=== PATIENT | female | born 1970 | race American Indian/Alaskan Native ===

== ENCOUNTER 2017-12-15 18:23 | Emergency (ER) | payer MEDICAID ==
--- NOTE | 2017-12-15 19:59 | Emergency Department Report ---
ED Psych HPI - General Chief Complaint: Psych Stated Complaint: MENTAL HEALTH EVALUATION Time Seen by Provider: 12/15/17 19:51 Source: patient Mode of arrival: Ambulatory - History of Present Illness Initial Comments: 47-year-old female brought in by professor of social work increasing combative behavior at the [facility] becoming combative foul language, which aggressive towards staff and residents patient arrives awake and alert but refusing to answer further questions uncooperative with exam and history.awake and alert, nad, vss, no airway problems, no stiff neck no obtundation, here for med clearance and mental health pedro CARIAS Complaint: other (combative behavir, personality d/o, thought and mood d/o) -: unknown Associated Psychiatric Symptoms: racing thoughts, auditory hallucinations Quality: intermittent Context: not taking psychiatric, other (stopped taking her meds 2 months ago) - Related Data Home Medications Medication Instructions Recorded Confirmed Last Taken Unobtainable 12/16/17 12/16/17 Unknown Allergies Allergy/AdvReac Type Severity Reaction Status Date / Time haloperidol [From Haldol] Allergy Unknown Verified 12/15/17 19:07 ED Review of Systems ROS: Stated complaint: MENTAL HEALTH EVALUATION Other details as noted in HPI Comment: Unobtainable due to pts medical conditions ED Past Medical Hx - Medications Home Medications: Home Medications Medication Instructions Recorded Confirmed Last Taken Type Unobtainable 12/16/17 12/16/17 Unknown History ED Physical Exam - General Limitations: Altered Mental Status, Other (awake and alert, no airway problems, good sat, no stridor no drooling) General appearance: alert, in no apparent distress - Head Head exam: Present: atraumatic, normocephalic - Eye Eye exam: Present: PERRL, EOMI - ENT ENT exam: Present: normal exam, normal orophraynx - Neck Neck exam: Present: normal inspection. Absent: tenderness, meningismus - Respiratory Respiratory exam: Present: normal lung sounds bilaterally. Absent: respiratory distress, wheezes, rales, rhonchi, stridor, chest wall tenderness, accessory muscle use, decreased breath sounds, prolonged expiratory - Cardiovascular Cardiovascular Exam: Present: regular rate. Absent: rubs, gallop - GI/Abdominal GI/Abdominal exam: Present: soft. Absent: tenderness, guarding, rebound, rigid , organomegaly, mass, pulsatile mass - Extremities Exam Extremities exam: Present: normal inspection, normal capillary refill. Absent: pedal edema, joint swelling, calf tenderness - Back Exam Back exam: Present: normal inspection. Absent: CVA tenderness (L), muscle spasm , paraspinal tenderness, vertebral tenderness - Neurological Exam Neurological exam: Present: alert, normal gait. Absent: motor sensory deficit - Psychiatric Psychiatric exam: Present: agitated, anxious, flat affect - Skin Skin exam: Absent: cyanosis, diaphoretic, erythema, urticaria, vesicles, petechiae, pallor, ecchymosis ED Course Vital Signs 12/15/17 19:07 Temperature 99.2 F Pulse Rate 91 H Respiratory 18 Rate Blood Pressure 100/53 [Left] O2 Sat by Pulse 100 Oximetry - Reevaluation(s) Reevaluation #1: 12/15/17 20:18 Patient placed on 1013 awaiting mental health eval. Clearance laboratory studies were ordered and are pending. ED Medical Decision Making - Lab Data Result diagrams: 12/15/17 19:46 12/15/17 19:46 - Radiology Data Radiology results: pending - Medical Decision Making Patient was placed on 1013 for danger to self and others he is uncooperative with further questioning but is unable to function at home where she was combative and a danger to staff and residents. Patient has a microcytic anemia no laboratory studies are available. She denies vaginal bleeding no black or bloody stools appreciated. She also does have hematuria with Estrace and the urine. She is not urinalysis for drugs of abuse was unremarkable and her salicylate Tylenol and alcohol were unremarkable. Given the anemia with hematuria CT abdomen and pelvis was ordered patient was placed on 1013. CT results are pending for medical clearance.ct results show nonobstructing kidney stones, abx for poss uti , med cleared for psych admit. Critical care attestation.: If time is entered above; I have spent that time in minutes in the direct care of this critically ill patient, excluding procedure time. ED Disposition Clinical Impression: Psychosis, UTI (urinary tract infection) Disposition: DC/TX-65 PSY HOSP/PSY UNIT Is pt being admited?: No Condition: Stable Referrals: CLEMENT HOLDER MD [Primary Care Provider] - 3-5 Days Time of Disposition: 01:08
[2017-12-15 20:06] LABS: Basophils % (Auto) 0.4 % (0.0-1.8); Eosinophils % (Auto) 0.2 % (0.0-4.3); Hematocrit 24.9 % (30.3-42.9); Hemoglobin 7.7 gm/dl (10.1-14.3); Lymphocytes # (Auto) 2.6 K/mm3 (1.2-5.4); Lymphocytes % (Auto) 34.5 % (13.4-35.0); Mean Corpuscular HGB Conc 31 % (30-34); Mean Corpuscular Volume 77 fl (79-97); Monocytes # (Auto) 0.7 K/mm3 (0.0-0.8); Monocytes % (Auto) 9.1 % (0.0-7.3); Platelet Count 157 K/mm3 (140-440); Red Blood Count 3.24 M/mm3 (3.65-5.03)
[2017-12-15 20:13] LABS: Bacteria,Urine 1+ /HPF (Negative); Bilirubin,Urine NEG (Negative); Blood,Urine MOD (Negative); Color,Urine Yellow (Yellow); Mucus,Urine FEW /HPF; Nitrite,Urine NEG (Negative); Protein,Urine <15 mg/dL mg/dL (Negative); Urobilinogen,Urine < 2.0 mg/dL (<2.0)
[2017-12-15 20:18] LABS: Mean Corpuscular Hemoglobin 24 pg (28-32); Red Cell Distribution Width 21.8 % (13.2-15.2)
[2017-12-15 20:25] LABS: BUN/Creatinine Ratio 12; Blood Urea Nitrogen 7 mg/dL (7-17); Hemolysis Index 0
[2017-12-15 20:40] LABS: Amphetamine Screen,Urine PRESUMPTIVE NEGATIVE; Benzodiazepines Screen,Urine PRESUMPTIVE NEGATIVE; Cannabinoid Screen,Urine PRESUMPTIVE NEGATIVE; Cocaine Screen,Urine PRESUMPTIVE NEGATIVE; Methadone Screen,Urine PRESUMPTIVE NEGATIVE; Opiate Screen,Urine PRESUMPTIVE NEGATIVE
[2017-12-16] MEDS ORDERED: XYLOCAINE 1% MPF 5 mL INFILTRATI ONE (01:15)
[2017-12-16] MEDS ORDERED: ROCEPHIN IM ONE (01:15)
[2017-12-16] MEDS ORDERED: GEODON IM ONE (01:42)
--- NOTE | 2017-12-16 07:43 | Cat Scan Report ---
FINAL REPORT EXAM: CT ABDOMEN PELVIS WO CON HISTORY: hematuria TECHNIQUE: Routine axial imaging was obtained of the abdomen and pelvis without oral or IV contrast. Sagittal and coronal reconstructions were reviewed. FINDINGS: The lung bases do not show infiltrates or effusions. The liver, gallbladder, pancreas, spleen, and adrenal glands appear normal. The right kidney reveals a punctate nonobstructing calcification in the lower pole. There is no evidence of right-sided hydronephrosis. The left kidney reveals multiple cortical cysts measuring up to 5.7 cm in diameter. There is no evidence of hydronephrosis otherwise. The bowel loops are normal in caliber and course. The appendix is not enlarged. In the pelvis the uterus is diffusely enlarged. The bladder appears normal. There are multiple phleboliths along the floor pelvis. There is no evidence of free fluid or adenopathy. The skeletal structures reveal mild arthritic changes lumbar spine. IMPRESSION: Nonobstructing punctate calcification in the lower pole of the right kidney. No evidence of hydronephrosis Multiple cortical cysts in the left kidney measuring 5.7 cm in diameter. No acute process in the abdomen and pelvis. Enlarged uterus. Arthritic changes in the lumbar spine
--- NOTE | 2017-12-16 14:14 | Consultation ---
History of Present Illness - Reason for Consult Consult date: 12/16/17 Reason for consult: Mental Health Evaluation Requesting physician: SARAH SALMERON - Chief Complaint Chief complaint: "What" - History of Present Psychiatric Illness This is a 47-year-old AA female brought in by manager social media with increasing combative behavior at her correction. Today the patient is hyper verbal and tangent during the assessment. She had to be redirected several times to keep her on topic. Her answers to questions were not logical. She did deny Si/HI's. The patient is a poor historian at this time. Medications and Allergies Allergies Allergy/AdvReac Type Severity Reaction Status Date / Time haloperidol [From Haldol] Allergy Unknown Verified 12/15/17 19:07 Home Medications Medication Instructions Recorded Confirmed Last Taken Type Unobtainable 12/16/17 12/16/17 Unknown History Past psychiatric history - Past Medical History Past Medical History: other (Unable to obtain) Past Surgical History: Other (Unable to obtain) - past Psychiatric treatment and history psychiatric treatment history: The patient stated that she takes Zyprexa and Depakote. Unable to obtain a fam psy hx. - Social History Social history: other (Reside at a correction) Mental Status Exam - Vital signs Last Vital Signs Temp 99.2 F 12/15/17 19:07 Pulse 91 H 12/15/17 19:07 Resp 18 12/15/17 19:07 BP 100/53 12/15/17 19:07 Pulse Ox 100 12/15/17 19:07 - Exam Narrative exam: MSE: Appearance: calm Behavior: regular eye contact Speech: hyper verbal Mood: "okay" Affect: labile Thought Process: tangential Thought Content: denies SI/HI's and AVH's, disorganized Motor Activity: sitting up in the bed Cognition: A/O x 3 Insight: poor Judgment: poor Results Result Diagrams: 12/15/17 19:46 12/15/17 19:46 Abnormal lab results 12/15/17 12/15/17 12/15/17 Range/Units 19:46 19:46 19:46 RBC 3.24 L (3.65-5.03) M/mm3 Hgb 7.7 L (10.1-14.3) gm/dl Hct 24.9 L (30.3-42.9) % MCV 77 L (79-97) fl MCH 24 L (28-32) pg RDW 21.8 H (13.2-15.2) % [place] % (Auto) 9.1 H (0.0-7.3) % Sodium 136 L (137-145) mmol/L Potassium 3.3 L (3.6-5.0) mmol/L Carbon Dioxide 18 L (22-30) mmol/L Creatinine 0.6 L (0.7-1.2) mg/dL Salicylates < 0.3 L (2.8-20.0) mg/dL All other labs normal. Assessment and Plan Assessment and plan: Impression: Unspecified Psychosis. Today the patient is hyper verbal and tangent during the assessment. HgB 7.7. DDx: Bipolar Do with psychosis, R/O Schizophrenia , R/O Schizoaffective DO Recommendation/Plan: Continue 1013 with placement to inpatient psy services once cleared medically. Start Zyprexa 5 mg PO HS for mood/psychosis and Depakote 500 mg PO BID for mood.
[2017-12-16 15:13] LABS: Alanine Aminotransferase 6 units/L (7-56); Lipase 12 units/L (13-60)
[2017-12-17 08:36] VITALS: BP 125/65
[2017-12-17] MEDS ORDERED: ATIVAN IM ONE (13:09)
== END 2017-12-17 13:28 ==
LOC: ED 18:23 → EEVIPCON 18:23 → ED 12-17 13:28
DX: F29 Unspecified psychosis not due to a substance or known physiological condition (principal); N39.0 Urinary tract infection, site not specified
CPT/HCPCS: 36415; 80048; 80164; 80307; 81001; 82150; 83690; 84075; 84450; 84460; 84703; 85025; 96372; 99285; G0480; J0696; J2060; J3486; 80320

== ENCOUNTER 2018-06-15 01:46 | Emergency (ER) | payer MEDICAID ==
[2018-06-15 02:08] VITALS: BP 109/70
[2018-06-15 03:01] LABS: Basophils # (Auto) 0.1 K/mm3 (0.0-0.1); Basophils % (Auto) 1.3 % (0.0-1.8); Eosinophils % (Auto) 0.3 % (0.0-4.3); Hematocrit 23.5 % (30.3-42.9); Hemoglobin 7.3 gm/dl (10.1-14.3); Lymphocytes # (Auto) 1.6 K/mm3 (1.2-5.4); Lymphocytes % (Auto) 32.3 % (13.4-35.0); Mean Corpuscular HGB Conc 31 % (30-34); Mean Corpuscular Hemoglobin 25 pg (28-32); Mean Corpuscular Volume 82 fl (79-97); Monocytes # (Auto) 0.4 K/mm3 (0.0-0.8); Monocytes % (Auto) 7.4 % (0.0-7.3); Platelet Count 167 K/mm3 (140-440); Red Blood Count 2.87 M/mm3 (3.65-5.03); Red Cell Distribution Width 21.6 % (13.2-15.2)
[2018-06-15 03:14] LABS: BUN/Creatinine Ratio 10; Blood Urea Nitrogen 6 mg/dL (7-17); Calcium 8.8 mg/dL (8.4-10.2); Hemolysis Index 0
--- NOTE | 2018-06-15 03:44 | Emergency Department Report ---
ED Psych HPI - General Chief Complaint: Psych Stated Complaint: MH EVAL Time Seen by Provider: 06/15/18 03:43 Source: patient, police Mode of arrival: Ambulatory - History of Present Illness Initial Comments: Pt hasn't had her meds in 2 weeks. She comes to the ER for refill of her home medication. Denies SI, HI. - Related Data Previous Rx's Medication Instructions Recorded Last Taken Type Divalproex Sodium [Depakote] 500 mg PO BID #30 tablet. 06/15/18 Unknown Rx Allergies Allergy/AdvReac Type Severity Reaction Status Date / Time haloperidol [From Haldol] Allergy Unknown Verified 12/15/17 19:07 ED Review of Systems ROS: Stated complaint: MH EVAL Other details as noted in HPI Comment: All other systems reviewed and negative Psychiatric: auditory hallucinations. denies: homicidal thoughts, suicidal thoughts ED Past Medical Hx - Past Medical History Previous Medical History?: Yes - Surgical History Past Surgical History?: No - Social History Smoking Status: Never Smoker Substance Use Type: Alcohol - Medications Home Medications: Home Medications Medication Instructions Recorded Confirmed Last Taken Type Divalproex Sodium [Depakote] 500 mg PO BID #30 tablet. 06/15/18 Unknown Rx ED Physical Exam - General Limitations: No Limitations General appearance: alert, in no apparent distress, anxious, other (disheveled) - Head Head exam: Present: atraumatic, normocephalic - Eye Eye exam: Present: normal appearance - ENT ENT exam: Present: mucous membranes moist - Neck Neck exam: Present: normal inspection - Respiratory Respiratory exam: Present: normal lung sounds bilaterally. Absent: respiratory distress - Cardiovascular Cardiovascular Exam: Present: regular rate, normal rhythm. Absent: systolic murmur, diastolic murmur, rubs, gallop - GI/Abdominal GI/Abdominal exam: Present: soft, normal bowel sounds. Absent: distended, tenderness, guarding, rebound - Extremities Exam Extremities exam: Present: normal inspection - Back Exam Back exam: Present: normal inspection - Neurological Exam Neurological exam: Present: alert, oriented X3 - Psychiatric Psychiatric exam: Present: normal affect, anxious (odd behaviour) - Skin Skin exam: Present: warm, dry, intact, normal color. Absent: rash ED Course Vital Signs 06/15/18 02:02 Temperature 98.5 F Pulse Rate 85 Respiratory 16 Rate Blood Pressure 109/70 O2 Sat by Pulse 100 Oximetry ED Medical Decision Making - Lab Data Result diagrams: 06/15/18 02:36 06/15/18 02:36 - Medical Decision Making 47 yo female with pmhx of unknown psych diagnosis that presents for med refill. VSS. Pt is mildly dishelved. She is odd with borderline pressure speech. Patient is alert and oriented 3. She does not want to speak with the psychiatrist. She is just requesting for a refill of her Depakote medicine. Lab work shows stable chronic anemia. Glucophage in the past. Given her a refill of 20 days worth of Depakote. She has also been referred [facility] for further refills of her psych medication. Patient is cleared for discharged. - Differential Diagnosis psychosis, schizophrenia, manic disoder, mood disorder nos, intoxication Critical care attestation.: If time is entered above; I have spent that time in minutes in the direct care of this critically ill patient, excluding procedure time. ED Disposition Clinical Impression: Anemia, Mood disorder, Medication refill Disposition: DC-01 TO HOME OR SELFCARE Is pt being admited?: No Does the pt Need Aspirin: No Condition: Stable Additional Instructions: Please follow up with [facility] for further refills of your psychiatric medication. Prescriptions: Divalproex Sodium [Depakote] 500 mg PO BID #30 tablet. Referrals: PRIMARY CARE, [Primary Care Provider] - 3-5 Days [facility] [Outside] - 3-5 Days
== END 2018-06-15 04:00 | disposition home or self-care (01) ==
LOC: ED 01:46
DX: Z76.0 Encounter for issue of repeat prescription (principal); D64.9 Anemia, unspecified; F39 Unspecified mood [affective] disorder
CPT/HCPCS: 36415; 80048; 85025; 99283; G0480; 80320

== ENCOUNTER 2022-02-15 15:24 | Inpatient (IN) | payer MEDICAID ==
[2022-02-15] MEDS: traZODone 50 MG TAB PO SCH (21:16)
[2022-02-15] MEDS: DIVALPROEX DR 500 MG TAB PO SCH (21:16)
--- NOTE | 2022-02-15 21:22 | Consultation ---
History of Present Illness - Reason for Consult Consult date: 02/15/22 Medical managment Requesting physician: VINITA RENEE - History of Present Illness 53 YO Female with Schizophrenia, ANDREW admitted to [facility] for psychiatric stabilization. Consult placed by Dr. Renee for medical management. Patient seen and evaluated in the recreation room. No reported nursing events. Patient denies pain. No reports of fever, chills, chest pain, palpitation, productive cough, skin rash, recent contact, known exposure to COVID-19. Patient is at baseline level of cognition and function. Past History Past Medical History: other (See HPI) Past Surgical History: No surgical history, Other (Reviewed) Social history: single. denies: smoking, alcohol abuse Family history: hypertension Medications and Allergies Allergies Allergy/AdvReac Type Severity Reaction Status Date / Time haloperidol [From Haldol] Allergy Unknown Verified 12/15/17 19:07 Home Medications Medication Instructions Recorded Confirmed Last Taken Type Divalproex Sodium [Depakote] 500 mg PO BID #30 tablet. 06/15/18 02/16/22 Unknown Rx traZODone [Desyrel] 50 mg PO HS 02/16/22 02/16/22 Unknown History Active Meds: Active Medications Divalproex Sodium (Divalproex Dr 500 Mg Tab) 500 mg PO BID [facility] Last Admin: 02/15/22 21:16 Dose: 500 mg Trazodone HCl (Trazodone 50 Mg Tab) 50 mg PO QHS [facility] Last Admin: 02/15/22 21:16 Dose: 50 mg Review of Systems Constitutional: no weight loss, no weight gain Ears, nose, mouth and throat: no ear pain, no tinnitis, no decreased hearing, no nose pain Breasts: no change in shape, no swelling Cardiovascular: no chest pain, no orthopnea, no palpitations, no edema, no syncope Respiratory: no cough, no cough with sputum Gastrointestinal: no abdominal pain, no diarrhea, no constipation, no change in bowel habits, no hematemesis Genitourinary Female: no pelvic pain, no flank pain, no dysuria, no urinary frequency, no urgency Rectal: no pain, no incontinence, no bleeding Musculoskeletal: no neck stiffness, no neck pain, no shooting arm pain, no arm numbness/tingling Integumentary: no rash, no redness, no wounds, no jaundice Neurological: no head injury, no parathesias, no numbness, no syncope, no tremors Psychiatric: anxiety, sleep disturbances, mood swings Endocrine: no polyphagia, no excessive thirst, no excessive sweating Hematologic/Lymphatic: no easy bruising, no easy bleeding, no lymphadenopathy Allergic/Immunologic: no allergic rhinitis, no wheezing Exam - Constitutional General appearance: Present: no acute distress, well-nourished - EENT Eyes: Present: PERRL ENT: hearing intact, clear oral mucosa - Neck Neck: Present: supple, normal ROM - Respiratory Respiratory effort: normal Respiratory: bilateral: CTA - Cardiovascular Heart Sounds: Present: S1 & S2. Absent: rub, click - Extremities Extremities: pulses symmetrical, No edema Peripheral Pulses: within normal limits - Abdominal General gastrointestinal: Present: soft, non-tender, non-distended, normal bowel sounds Female genitourinary: Present: normal - Integumentary Integumentary: Present: clear, warm, dry - Musculoskeletal Musculoskeletal: gait normal, strength equal bilaterally - Psychiatric Psychiatric: appropriate mood/affect, intact judgment & insight - Neurologic Neurologic: CNII-XII intact, moves all extremities Results - Labs CBC & Chem 7: 02/16/22 11:00 02/16/22 11:00 Assessment and Plan - Patient Problems (1) Schizophrenia Current Visit: Yes Status: Acute Plan to address problem: Continue medical management, behavior change counseling, cognitive behavioral therapy. (2) Generalized anxiety disorder Current Visit: Yes Status: Acute Plan to address problem: Benzodiazepine therapy as clinically indicated, supportive care. (3) Advance care planning Current Visit: Yes Status: Acute Plan to address problem: Disease education conducted, care plan discussed, diagnoses discussed, prognosis discussed, patient is full code. Patient knowledges understanding and agreeme nt with care plan, +30 minutes.
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
[2022-02-16] MEDS: DIVALPROEX DR 500 MG TAB PO SCH ×2 (09:59→21:35)
--- NOTE | 2022-02-16 11:07 | Progress Note ---
Assessment and Plan - Patient Problems (1) Generalized anxiety disorder Current Visit: Yes Status: Acute Plan to address problem: Benzodiazepine therapy as clinically indicated, supportive care. (2) Schizophrenia Current Visit: Yes Status: Acute Plan to address problem: Continue medical management, behavior change counseling, cognitive behavioral therapy. (3) Advance care planning Current Visit: Yes Status: Acute Plan to address problem: Disease education conducted, care plan discussed, diagnoses discussed, prognosis discussed, patient is full code. Patient knowledges understanding and agreement with care plan, +30 minutes. History Interval history: 53 YO Female with Schizophrenia, ANDREW admitted to [facility] for psychiatric stabilization. Consult placed by Dr. Phipps for medical management. Patient seen and evaluated in the recreation room. No reported nursing events. Patient denies pain. Patient is at baseline level of cognition and function. Hospitalist Physical - Constitutional Vitals: Temp Pulse Resp BP Pulse Ox 98.2 F 69 18 120/65 97 02/15/22 22:00 02/15/22 22:00 02/15/22 22:00 02/15/22 22:00 02/15/22 22:00 General appearance: Present: no acute distress - EENT Eyes: Present: PERRL ENT: hearing intact - Neck Neck: Present: supple - Respiratory Respiratory effort: normal Respiratory: bilateral: CTA - Cardiovascular Rhythm: regular Heart Sounds: Present: S1 & S2 - Extremities Extremities: no ischemia Peripheral Pulses: within normal limits - Abdominal General gastrointestinal: soft, non-tender, non-distended - Integumentary Integumentary: Present: clear, dry - Psychiatric Psychiatric: cooperative Results - Labs CBC & Chem 7: 02/16/22 11:00 02/16/22 11:00 Labs: Laboratory Last Values POC Glucose 93 mg/dL (70-105) 02/16/22 06:14 Dunn/IV: Voiding Method Toilet Active Medications - Current Medications Current Medications: Generic Name Dose Route Start Last Admin Trade Name Freq PRN Reason Stop Dose Admin Divalproex Sodium 500 mg 02/15/22 22:00 02/16/22 09:[address] 500 Mg Tab PO 500 mg BID JOHN Administration Trazodone HCl 50 mg 02/15/22 22:00 02/15/22 21:16 Trazodone 50 Mg Tab PO 50 mg QHS JOHN Administration
[2022-02-16 11:36] LABS: Basophils # (Auto) 0.1 K/mm3 (0.0-0.1); Basophils % (Auto) 1.4 % (0.0-1.8); Eosinophils % (Auto) 1.1 % (0.0-4.3); Hematocrit 36.9 % (30.3-42.9); Hemoglobin 11.8 gm/dl (10.1-14.3); Lymphocytes # (Auto) 1.5 K/mm3 (1.2-5.4); Lymphocytes % (Auto) 35.5 % (13.4-35.0); Mean Corpuscular HGB Conc 32 % (30-34); Mean Corpuscular Volume 89 fl (79-97); Monocytes # (Auto) 0.4 K/mm3 (0.0-0.8); Monocytes % (Auto) 9.5 % (0.0-7.3); Platelet Count 148 K/mm3 (140-440); Red Blood Count 4.15 M/mm3 (3.65-5.03)
[2022-02-16 11:38] LABS: Red Cell Distribution Width 20.3 % (13.2-15.2)
[2022-02-16 11:54] LABS: Alanine Aminotransferase 8 units/L (7-56); Albumin 4.2 g/dL (3.9-5); Blood Urea Nitrogen 12 mg/dL (7-17); Calcium 9.7 mg/dL (8.4-10.2); HDL Cholesterol 55 mg/dL (40-59); Hemolysis Index 3; LDL Cholesterol,Direct 97 mg/dL (50-130)
[2022-02-16 11:57] LABS: BUN/Creatinine Ratio 24
[2022-02-16 12:03] LABS: Hepatitis B Surface Antigen Non-Reactive (Negative); Hepatitis C Virus Antibody Non-Reactive (NonReactive)
[2022-02-16] MEDS: traZODone 50 MG TAB PO SCH (21:35)
[2022-02-17] MEDS: DIVALPROEX DR 500 MG TAB PO SCH ×2 (09:20→21:20)
--- NOTE | 2022-02-17 09:34 | Progress Note ---
Subjective Date of service: 02/17/22 Subjective Comment: The patient was seen this morning. She is pacing but reports doing well. She states sleep and appetite is good. The patient denies any current suicidal/homicidal ideation. She admits to hearing voices but states " voices trying to shut down." REVIEW OF SYSTEMS Constitutional: Negative for weight loss ENT: Negative for stridor Respiratory: Negative for cough or hemoptysis All other systems reviewed and are negative MENTAL STATUS EXAMINATION General Appearance and Behavior: Age appropriate, good hygiene, wearing appropriate clothes, good eye contact, calm, cooperative Cooperation: Participating/engaged, but Guarded Psychomotor Behavior: Psychomotor normal Mood:OK Affect and affective range: congruent Thought Process: Goal directed Thought Content: Reality oriented Speech: normal tone and pace Suicidal Ideation: Denies Homicidal Ideation: Denies Hallucinations: Auditory Delusions: None elicited Impulse Control: Limited Insight and Judgment: Limited insight and judgment Memory: Limited Attention: attentive Orientation: Alert, oriented Assessment and Plan Schizophrenia Treatment Plan Patient admitted for inpatient psychiatric evaluation, medication adjustment and close monitoring The patient's behavior, mood, sleep and appetite will be closely monitored. Patient enrolled in individual and group therapeutic sessions and encouraged to attend. Patient provided with a safe and structured environment. Patient's physical health needs will be addressed by the Hospitalist. Hospitalist Consulted Labs including CBC, CMP, Lipid profile and Hemoglobin A1C levels ordered for baseline reference Social Assessment will be completed and the Drywall Professional will work with patient and family to ensure a suitable and safe disposition Medication adjustment will be made as clinically indicated continue home meds Usual Wellness Bahai/Preservation: - Start Trazodone 50 mg po QHS & 50 mg po QHS PRN between 10 PM & 2 AM for insomnia - Start Melatonin 5 mg po QHS to promote circadian rhythm The patient agreed on the treatment plan, understood the risk, benefit, alternative treatment, potential consequence of no treatment, and gave informed consent. Estimated days: 6 Post hospital care: primary care provider, psychiatric provider Case staffed with Dr. Adams Medications and Allergies Medications and Allergies Allergies Allergy/AdvReac Type Severity Reaction Status Date / Time haloperidol [From Haldol] Allergy Unknown Verified 12/15/17 19:07 Home Medications Medication Instructions Recorded Confirmed Last Taken Type Divalproex Sodium [Depakote] 500 mg PO BID #30 tablet. 06/15/18 02/16/22 Unknown Rx traZODone [Desyrel] 50 mg PO HS 02/16/22 02/16/22 Unknown History Active Meds: Active Medications Divalproex Sodium (Divalproex Dr 500 Mg Tab) 500 mg PO BID [facility] Last Admin: 02/17/22 09:20 Dose: 500 mg Trazodone HCl (Trazodone 50 Mg Tab) 50 mg PO QHS [facility] Last Admin: 02/16/22 21:35 Dose: 50 mg Results - Results Labs/Vitals: Laboratory Last Values WBC 4.1 K/mm3 (4.5-11.0) L 02/16/22 11:00 RBC 4.15 M/mm3 (3.65-5.03) 02/16/22 11:00 Hgb 11.8 gm/dl (10.1-14.3) 02/16/22 11:00 Hct 36.9 % (30.3-42.9) 02/16/22 11:00 MCV 89 fl (79-97) 02/16/22 11:00 MCH 29 pg (28-32) 02/16/22 11:00 MCHC 32 % (30-34) 02/16/22 11:00 RDW 20.3 % (13.2-15.2) H 02/16/22 11:00 Plt Count 148 K/mm3 (140-440) 02/16/22 11:00 Lymph % (Auto) 35.5 % (13.4-35.0) H 02/16/22 11:00 [place] % (Auto) 9.5 % (0.0-7.3) H 02/16/22 11:00 Eos % (Auto) 1.1 % (0.0-4.3) 02/16/22 11:00 Baso % (Auto) 1.4 % (0.0-1.8) 02/16/22 11:00 Lymph # (Auto) 1.5 K/mm3 (1.2-5.4) 02/16/22 11:00 [place] # (Auto) 0.4 K/mm3 (0.0-0.8) 02/16/22 11:00 Eos # (Auto) 0.0 K/mm3 (0.0-0.4) 02/16/22 11:00 Baso # (Auto) 0.1 K/mm3 (0.0-0.1) 02/16/22 11:00 Seg Neutrophils % 52.5 % (40.0-70.0) 02/16/22 11:00 Seg Neutrophils # 2.2 K/mm3 (1.8-7.7) 02/16/22 11:00 Sodium 141 mmol/L (137-145) 02/16/22 11:00 Potassium 4.4 mmol/L (3.6-5.0) 02/16/22 11:00 Chloride 105.3 mmol/L (98-107) 02/16/22 11:00 Carbon Dioxide 24 mmol/L (22-30) 02/16/22 11:00 Anion Gap 16 mmol/L 02/16/22 11:00 BUN 12 mg/dL (7-17) 02/16/22 11:00 Creatinine 0.5 mg/dL (0.6-1.2) L 02/16/22 11:00 Estimated GFR > 60 ml/min 02/16/22 11:00 BUN/Creatinine Ratio 24 % 02/16/22 11:00 Glucose 89 mg/dL (65-100) 02/16/22 11:00 POC Glucose 93 mg/dL (70-105) 02/16/22 06:14 Hemoglobin A1c 4.5 % (4-6) 02/16/22 11:11 Calcium 9.7 mg/dL (8.4-10.2) 02/16/22 11:00 Total Bilirubin 0.40 mg/dL (0.1-1.2) 02/16/22 11:00 AST 14 units/L (5-40) 02/16/22 11:00 ALT 8 units/L (7-56) 02/16/22 11:00 Alkaline Phosphatase 96 units/L (35-129) 02/16/22 11:00 Total Protein 7.6 g/dL (6.3-8.2) 02/16/22 11:00 Albumin 4.2 g/dL (3.9-5) 02/16/22 11:00 Albumin/Globulin Ratio 1.2 % 02/16/22 11:00 Triglycerides 111 mg/dL (2-149) 02/16/22 11:00 Cholesterol 154 mg/dL (50-199) 02/16/22 11:00 LDL Cholesterol Direct 97 mg/dL (50-130) 02/16/22 11:00 HDL Cholesterol 55 mg/dL (40-59) 02/16/22 11:00 Cholesterol/HDL Ratio 2.80 % 02/16/22 11:00 TSH 1.370 mlU/mL (0.270-4.200) 02/16/22 11:00 Hepatitis A IgM Ab Non-reactive (NonReactive) 02/16/22 11:00 Hep Bs Antigen Non-reactive (Negative) 02/16/22 11:00 Hep B Core IgM Ab Non-reactive (NonReactive) 02/16/22 11:00 Hepatitis C Antibody Non-reactive (NonReactive) 02/16/22 11:00 Last Vital Signs Temp 97.5 F L 02/16/22 20:00 Pulse 67 02/16/22 20:00 Resp 14 02/16/22 20:00 BP 133/65 02/16/22 20:00 Pulse Ox 98 02/16/22 20:00
--- NOTE | 2022-02-17 21:07 | Progress Note ---
Assessment and Plan - Patient Problems (1) Generalized anxiety disorder Current Visit: Yes Status: Acute Plan to address problem: Benzodiazepine therapy as clinically indicated, supportive care. (2) Schizophrenia Current Visit: Yes Status: Acute Plan to address problem: Continue medical management, behavior change counseling, cognitive behavioral therapy. (3) Advance care planning Current Visit: Yes Status: Acute Plan to address problem: Disease education conducted, care plan discussed, diagnoses discussed, prognosis discussed, patient is full code. Patient knowledges understanding and agreement with care plan, +30 minutes. History Interval history: 53 YO Female with Schizophrenia, ANDREW admitted to [facility] for psychiatric stabilization. Consult placed by Dr. Phipps for medical management. Patient seen and evaluated in the recreation room. No reported nursing events. Patient denies pain. Patient is at baseline level of cognition and function. Hospitalist Physical - Constitutional Vitals: Temp Pulse Resp BP Pulse Ox 98.2 F 87 16 132/78 100 02/17/22 20:19 02/17/22 20:19 02/17/22 20:19 02/17/22 20:19 02/17/22 20:19 General appearance: Present: no acute distress - EENT Eyes: Present: PERRL ENT: hearing intact - Neck Neck: Present: supple - Respiratory Respiratory effort: normal Respiratory: bilateral: CTA - Cardiovascular Rhythm: regular Heart Sounds: Present: S1 & S2 - Extremities Extremities: no ischemia Peripheral Pulses: within normal limits - Abdominal General gastrointestinal: soft, non-tender, non-distended - Integumentary Integumentary: Present: clear, dry - Psychiatric Psychiatric: cooperative - Neurologic Neurologic: CNII-XII intact Results - Labs CBC & Chem 7: 02/16/22 11:00 02/16/22 11:00 Labs: Laboratory Last Values WBC 4.1 K/mm3 (4.5-11.0) L 02/16/22 11:00 RBC 4.15 M/mm3 (3.65-5.03) 02/16/22 11:00 Hgb 11.8 gm/dl (10.1-14.3) 02/16/22 11:00 Hct 36.9 % (30.3-42.9) 02/16/22 11:00 MCV 89 fl (79-97) 02/16/22 11:00 MCH 29 pg (28-32) 02/16/22 11:00 MCHC 32 % (30-34) 02/16/22 11:00 RDW 20.3 % (13.2-15.2) H 02/16/22 11:00 Plt Count 148 K/mm3 (140-440) 02/16/22 11:00 Lymph % (Auto) 35.5 % (13.4-35.0) H 02/16/22 11:00 [place] % (Auto) 9.5 % (0.0-7.3) H 02/16/22 11:00 Eos % (Auto) 1.1 % (0.0-4.3) 02/16/22 11:00 Baso % (Auto) 1.4 % (0.0-1.8) 02/16/22 11:00 Lymph # (Auto) 1.5 K/mm3 (1.2-5.4) 02/16/22 11:00 [place] # (Auto) 0.4 K/mm3 (0.0-0.8) 02/16/22 11:00 Eos # (Auto) 0.0 K/mm3 (0.0-0.4) 02/16/22 11:00 Baso # (Auto) 0.1 K/mm3 (0.0-0.1) 02/16/22 11:00 Seg Neutrophils % 52.5 % (40.0-70.0) 02/16/22 11:00 Seg Neutrophils # 2.2 K/mm3 (1.8-7.7) 02/16/22 11:00 Sodium 141 mmol/L (137-145) 02/16/22 11:00 Potassium 4.4 mmol/L (3.6-5.0) 02/16/22 11:00 Chloride 105.3 mmol/L (98-107) 02/16/22 11:00 Carbon Dioxide 24 mmol/L (22-30) 02/16/22 11:00 Anion Gap 16 mmol/L 02/16/22 11:00 BUN 12 mg/dL (7-17) 02/16/22 11:00 Creatinine 0.5 mg/dL (0.6-1.2) L 02/16/22 11:00 Estimated GFR > 60 ml/min 02/16/22 11:00 BUN/Creatinine Ratio 24 % 02/16/22 11:00 Glucose 89 mg/dL (65-100) 02/16/22 11:00 POC Glucose 93 mg/dL (70-105) 02/16/22 06:14 Hemoglobin A1c 4.5 % (4-6) 02/16/22 11:11 Calcium 9.7 mg/dL (8.4-10.2) 02/16/22 11:00 Total Bilirubin 0.40 mg/dL (0.1-1.2) 02/16/22 11:00 AST 14 units/L (5-40) 02/16/22 11:00 ALT 8 units/L (7-56) 02/16/22 11:00 Alkaline Phosphatase 96 units/L (35-129) 02/16/22 11:00 Total Protein 7.6 g/dL (6.3-8.2) 02/16/22 11:00 Albumin 4.2 g/dL (3.9-5) 02/16/22 11:00 Albumin/Globulin Ratio 1.2 % 02/16/22 11:00 Triglycerides 111 mg/dL (2-149) 02/16/22 11:00 Cholesterol 154 mg/dL (50-199) 02/16/22 11:00 LDL Cholesterol Direct 97 mg/dL (50-130) 02/16/22 11:00 HDL Cholesterol 55 mg/dL (40-59) 02/16/22 11:00 Cholesterol/HDL Ratio 2.80 % 02/16/22 11:00 TSH 1.370 mlU/mL (0.270-4.200) 02/16/22 11:00 Hepatitis A IgM Ab Non-reactive (NonReactive) 02/16/22 11:00 Hep Bs Antigen Non-reactive (Negative) 02/16/22 11:00 Hep B Core IgM Ab Non-reactive (NonReactive) 02/16/22 11:00 Hepatitis C Antibody Non-reactive (NonReactive) 02/16/22 11:00 [place]/IV: Voiding Method Toilet Active Medications - Current Medications Current Medications: Generic Name Dose Route Start Last Admin Trade Name Freq PRN Reason Stop Dose Admin Divalproex Sodium 500 mg 02/15/22 22:00 02/17/22 09:[address] 500 Mg Tab PO 500 mg BID JOHN Administration Trazodone HCl 50 mg 02/15/22 22:00 02/16/22 21:35 Trazodone 50 Mg Tab PO 50 mg QHS JOHN Administration
[2022-02-17] MEDS: traZODone 50 MG TAB PO SCH (21:20)
[2022-02-18] MEDS: DIVALPROEX DR 500 MG TAB PO SCH ×2 (09:16→21:40)
--- NOTE | 2022-02-18 09:28 | Progress Note ---
Subjective Date of service: 02/18/22 Subjective Comment: 02/18/22:The patient was seen this morning. She states she is feeling better. She states sleep and appetite is good. The patient denies any current suicidal/homicidal ideation. She admits to hearing voices but states " moderate" 02/17/22:The patient was seen this morning. She is pacing but reports doing well. She states sleep and appetite is good. The patient denies any current suicidal/homicidal ideation. She admits to hearing voices but states " voices trying to shut down." REVIEW OF SYSTEMS Constitutional: Negative for weight loss ENT: Negative for stridor Respiratory: Negative for cough or hemoptysis All other systems reviewed and are negative MENTAL STATUS EXAMINATION General Appearance and Behavior: Age appropriate, good hygiene, wearing appropriate clothes, good eye contact, calm, cooperative Cooperation: Participating/engaged, but Guarded Psychomotor Behavior: Psychomotor normal Mood:good Affect and affective range: congruent Thought Process: Goal directed Thought Content: Reality oriented Speech: normal tone and pace Suicidal Ideation: Denies Homicidal Ideation: Denies Hallucinations: Auditory Delusions: None elicited Impulse Control: Limited Insight and Judgment: Limited insight and judgment Memory: Limited Attention: attentive Orientation: Alert, oriented Assessment and Plan Schizophrenia Treatment Plan Patient admitted for inpatient psychiatric evaluation, medication adjustment and close monitoring The patient's behavior, mood, sleep and appetite will be closely monitored. Patient enrolled in individual and group therapeutic sessions and encouraged to attend. Patient provided with a safe and structured environment. Patient's physical health needs will be addressed by the Hospitalist. Hospitalist Consulted Labs including CBC, CMP, Lipid profile and Hemoglobin A1C levels ordered for baseline reference Social Assessment will be completed and the Manager Sound will work with patient and family to ensure a suitable and safe disposition Medication adjustment will be made as clinically indicated continue home meds Usual Wellness Taoism/Preservation: - Start Trazodone 50 mg po QHS & 50 mg po QHS PRN between 10 PM & 2 AM for insomnia - Start Melatonin 5 mg po QHS to promote circadian rhythm The patient agreed on the treatment plan, understood the risk, benefit, alternative treatment, potential consequence of no treatment, and gave informed consent. Estimated days: 6 Post hospital care: primary care provider, psychiatric provider Case staffed with Dr. Adams Medications and Allergies Medications and Allergies Allergies Allergy/AdvReac Type Severity Reaction Status Date / Time haloperidol [From Haldol] Allergy Unknown Verified 12/15/17 19:07 Home Medications Medication Instructions Recorded Confirmed Last Taken Type Divalproex Sodium [Depakote] 500 mg PO BID #30 tablet.dr 06/15/18 02/16/22 Unknown Rx traZODone [Desyrel] 50 mg PO HS 02/16/22 02/16/22 Unknown History Active Meds: Active Medications Divalproex Sodium (Divalproex Dr 500 Mg Tab) 500 mg PO BID [facility] Last Admin: 02/18/22 09:16 Dose: 500 mg Trazodone HCl (Trazodone 50 Mg Tab) 50 mg PO QHS [facility] Last Admin: 02/17/22 21:20 Dose: 50 mg Results - Results Labs/Vitals: Laboratory Last Values WBC 4.1 K/mm3 (4.5-11.0) L 02/16/22 11:00 RBC 4.15 M/mm3 (3.65-5.03) 02/16/22 11:00 Hgb 11.8 gm/dl (10.1-14.3) 02/16/22 11:00 Hct 36.9 % (30.3-42.9) 02/16/22 11:00 MCV 89 fl (79-97) 02/16/22 11:00 MCH 29 pg (28-32) 02/16/22 11:00 MCHC 32 % (30-34) 02/16/22 11:00 RDW 20.3 % (13.2-15.2) H 02/16/22 11:00 Plt Count 148 K/mm3 (140-440) 02/16/22 11:00 Lymph % (Auto) 35.5 % (13.4-35.0) H 02/16/22 11:00 [place] % (Auto) 9.5 % (0.0-7.3) H 02/16/22 11:00 Eos % (Auto) 1.1 % (0.0-4.3) 02/16/22 11:00 Baso % (Auto) 1.4 % (0.0-1.8) 02/16/22 11:00 Lymph # (Auto) 1.5 K/mm3 (1.2-5.4) 02/16/22 11:00 [place] # (Auto) 0.4 K/mm3 (0.0-0.8) 02/16/22 11:00 Eos # (Auto) 0.0 K/mm3 (0.0-0.4) 02/16/22 11:00 Baso # (Auto) 0.1 K/mm3 (0.0-0.1) 02/16/22 11:00 Seg Neutrophils % 52.5 % (40.0-70.0) 02/16/22 11:00 Seg Neutrophils # 2.2 K/mm3 (1.8-7.7) 02/16/22 11:00 Sodium 141 mmol/L (137-145) 02/16/22 11:00 Potassium 4.4 mmol/L (3.6-5.0) 02/16/22 11:00 Chloride 105.3 mmol/L (98-107) 02/16/22 11:00 Carbon Dioxide 24 mmol/L (22-30) 02/16/22 11:00 Anion Gap 16 mmol/L 02/16/22 11:00 BUN 12 mg/dL (7-17) 02/16/22 11:00 Creatinine 0.5 mg/dL (0.6-1.2) L 02/16/22 11:00 Estimated GFR > 60 ml/min 02/16/22 11:00 BUN/Creatinine Ratio 24 % 02/16/22 11:00 Glucose 89 mg/dL (65-100) 02/16/22 11:00 POC Glucose 93 mg/dL (70-105) 02/16/22 06:14 Hemoglobin A1c 4.5 % (4-6) 02/16/22 11:11 Calcium 9.7 mg/dL (8.4-10.2) 02/16/22 11:00 Total Bilirubin 0.40 mg/dL (0.1-1.2) 02/16/22 11:00 AST 14 units/L (5-40) 02/16/22 11:00 ALT 8 units/L (7-56) 02/16/22 11:00 Alkaline Phosphatase 96 units/L (35-129) 02/16/22 11:00 Total Protein 7.6 g/dL (6.3-8.2) 02/16/22 11:00 Albumin 4.2 g/dL (3.9-5) 02/16/22 11:00 Albumin/Globulin Ratio 1.2 % 02/16/22 11:00 Triglycerides 111 mg/dL (2-149) 02/16/22 11:00 Cholesterol 154 mg/dL (50-199) 02/16/22 11:00 LDL Cholesterol Direct 97 mg/dL (50-130) 02/16/22 11:00 HDL Cholesterol 55 mg/dL (40-59) 02/16/22 11:00 Cholesterol/HDL Ratio 2.80 % 02/16/22 11:00 TSH 1.370 mlU/mL (0.270-4.200) 02/16/22 11:00 Hepatitis A IgM Ab Non-reactive (NonReactive) 02/16/22 11:00 Hep Bs Antigen Non-reactive (Negative) 02/16/22 11:00 Hep B Core IgM Ab Non-reactive (NonReactive) 02/16/22 11:00 Hepatitis C Antibody Non-reactive (NonReactive) 02/16/22 11:00 Last Vital Signs Temp 97.4 F L 02/18/22 07:33 Pulse 70 02/18/22 07:33 Resp 16 02/18/22 07:33 BP 116/67 02/18/22 07:33 Pulse Ox 99 02/18/22 07:33
[2022-02-18 20:27] VITALS: BP 128/66
[2022-02-18] MEDS: traZODone 50 MG TAB PO SCH (21:38)
--- NOTE | 2022-02-19 00:57 | Progress Note ---
Subjective Date of service: 02/18/22 Objective - Constitutional Vitals: Vital Signs - 12hr 02/18/22 19:00 Temperature 98.1 F Pulse Rate 62 Respiratory 18 Rate Blood Pressure 128/66 [Right] O2 Sat by Pulse 100 Oximetry General appearance: Present: no acute distress, well-nourished - EENT Eyes: PERRL, EOM intact ENT: hearing intact, clear oral mucosa Ears: bilateral: normal - Neck Neck: supple, normal ROM - Respiratory Respiratory effort: normal Respiratory: bilateral: CTA - Breasts Breasts: normal - Cardiovascular Rhythm: regular Heart Sounds: Present: S1 & S2. Absent: gallop, rub Extremities: pulses intact, No edema, normal color, Full ROM - Gastrointestinal General gastrointestinal: Present: soft, non-tender, non-distended, normal bowel sounds - Genitourinary Female genitourinary: normal - Integumentary Integumentary: clear, warm, dry - Musculoskeletal Musculoskeletal: 1, strength equal bilaterally - Neurologic Neurologic: moves all extremities - Psychiatric Psychiatric: memory intact, appropriate mood/affect, intact judgment & insight - Labs CBC & Chem 7: 02/16/22 11:00 02/16/22 11:00
[2022-02-19] MEDS: DIVALPROEX DR 500 MG TAB PO SCH (09:24)
--- NOTE | 2022-02-19 09:25 | Discharge Summary ---
Providers - Providers Date of Admission: 02/15/22 19:26 Date of discharge: 02/19/22 Attending physician: VINITA RENEE MD 02/15/22 18:41 Consult to Physician [CONS] Routine Comment: Consulting Provider: ISHAN MARQUEZ Physician Instructions: Reason For Exam: manage existing medical problems Primary care physician: HOMOGENIZER OPERATOR Hospitalization Reason for admission: psychosis Admitting Diagnosis: F20.9 - SCHIZOPHRENIA, UNSPECIFIED Condition: Stable Hospital course: The patient was provided inpatient psychiatric treatment with safe and supportive environment, group/individual therapy, psychiatric medication, medication adjustment, adverse effect monitor, medical evaluation, medical treatment, social service assessment, social support meeting, placement assessment and psycho-education. The patients mood, cognition, behavior, motivation, compliance to treatment and appreciation on family/social support are improved and stabilized. At the time of discharge, the patient had no suicidal ideas, no homicidal ideas, no aggressive thoughts, no endangering behavior and no debilitating adverse effects. The patient agreed on the treatment plan, understood the risk, benefit, alternative treatment, potential consequence of no treatment, and gave informed consent. Disposition: 01 HOME / SELF CARE / HOMELESS Time spent for discharge: 35 Allergies/Adverse Reactions: Allergies haloperidol [From Haldol] Allergy (Verified 12/15/17 19:07) Unknown Vital Signs: Last Vital Signs Temp 98.1 F 02/18/22 19:00 Pulse 62 02/18/22 19:00 Resp 18 02/18/22 19:00 BP 128/66 02/18/22 19:00 Pulse Ox 100 02/18/22 19:00 Last Lab: Laboratory Last Values WBC 4.1 K/mm3 (4.5-11.0) L 02/16/22 11:00 RBC 4.15 M/mm3 (3.65-5.03) 02/16/22 11:00 Hgb 11.8 gm/dl (10.1-14.3) 02/16/22 11:00 Hct 36.9 % (30.3-42.9) 02/16/22 11:00 MCV 89 fl (79-97) 02/16/22 11:00 MCH 29 pg (28-32) 02/16/22 11:00 MCHC 32 % (30-34) 02/16/22 11:00 RDW 20.3 % (13.2-15.2) H 02/16/22 11:00 Plt Count 148 K/mm3 (140-440) 02/16/22 11:00 Lymph % (Auto) 35.5 % (13.4-35.0) H 02/16/22 11:00 [place] % (Auto) 9.5 % (0.0-7.3) H 02/16/22 11:00 Eos % (Auto) 1.1 % (0.0-4.3) 02/16/22 11:00 Baso % (Auto) 1.4 % (0.0-1.8) 02/16/22 11:00 Lymph # (Auto) 1.5 K/mm3 (1.2-5.4) 02/16/22 11:00 [place] # (Auto) 0.4 K/mm3 (0.0-0.8) 02/16/22 11:00 Eos # (Auto) 0.0 K/mm3 (0.0-0.4) 02/16/22 11:00 Baso # (Auto) 0.1 K/mm3 (0.0-0.1) 02/16/22 11:00 Seg Neutrophils % 52.5 % (40.0-70.0) 02/16/22 11:00 Seg Neutrophils # 2.2 K/mm3 (1.8-7.7) 02/16/22 11:00 Sodium 141 mmol/L (137-145) 02/16/22 11:00 Potassium 4.4 mmol/L (3.6-5.0) 02/16/22 11:00 Chloride 105.3 mmol/L (98-107) 02/16/22 11:00 Carbon Dioxide 24 mmol/L (22-30) 02/16/22 11:00 Anion Gap 16 mmol/L 02/16/22 11:00 BUN 12 mg/dL (7-17) 02/16/22 11:00 Creatinine 0.5 mg/dL (0.6-1.2) L 02/16/22 11:00 Estimated GFR > 60 ml/min 02/16/22 11:00 BUN/Creatinine Ratio 24 % 02/16/22 11:00 Glucose 89 mg/dL (65-100) 02/16/22 11:00 POC Glucose 93 mg/dL (70-105) 02/16/22 06:14 Hemoglobin A1c 4.5 % (4-6) 02/16/22 11:11 Calcium 9.7 mg/dL (8.4-10.2) 02/16/22 11:00 Total Bilirubin 0.40 mg/dL (0.1-1.2) 02/16/22 11:00 AST 14 units/L (5-40) 02/16/22 11:00 ALT 8 units/L (7-56) 02/16/22 11:00 Alkaline Phosphatase 96 units/L (35-129) 02/16/22 11:00 Total Protein 7.6 g/dL (6.3-8.2) 02/16/22 11:00 Albumin 4.2 g/dL (3.9-5) 02/16/22 11:00 Albumin/Globulin Ratio 1.2 % 02/16/22 11:00 Triglycerides 111 mg/dL (2-149) 02/16/22 11:00 Cholesterol 154 mg/dL (50-199) 02/16/22 11:00 LDL Cholesterol Direct 97 mg/dL (50-130) 02/16/22 11:00 HDL Cholesterol 55 mg/dL (40-59) 02/16/22 11:00 Cholesterol/HDL Ratio 2.80 % 02/16/22 11:00 TSH 1.370 mlU/mL (0.270-4.200) 02/16/22 11:00 Hepatitis A IgM Ab Non-reactive (NonReactive) 02/16/22 11:00 Hep Bs Antigen Non-reactive (Negative) 02/16/22 11:00 Hep B Core IgM Ab Non-reactive (NonReactive) 02/16/22 11:00 Hepatitis C Antibody Non-reactive (NonReactive) 02/16/22 11:00 Core Measure Documentation - Palliative Care Palliative Care/ Comfort Measures: Not Applicable - Core Measures Any of the following diagnoses?: none Exam - Constitutional Vitals: Temp Pulse Resp BP Pulse Ox 98.1 F 62 18 128/66 100 02/18/22 19:00 02/18/22 19:00 02/18/22 19:00 02/18/22 19:00 02/18/22 19:00 General appearance: Present: no acute distress - EENT Eyes: Present: EOM intact ENT: hearing intact, clear oral mucosa - Neck Neck: Present: supple, normal ROM - Respiratory Respiratory effort: normal Plan Activity: advance as tolerated Weight Bearing Status: Weight Bear as Tolerated Care Plan Goals: Maintain good and stable mental health Plan of Treatment: The patient should be compliant with medications, not to use drugs and not to drink alcohol.The patient understands that if suicidal ideas, homicidal ideas, or any endangering thoughts/behavior arise, they should immediately seek for emergent assistance including but not limited to crisis hot line and emergency room. Follow up with outpatient Psychiatrist and PCP within 7 - 14 days of discharge. Assessment: Schizophrenia Follow up with: PRIMARY CARE, [Primary Care Provider] - 7 Days Prescriptions: Divalproex Dr [Nate Hernandez] 500 mg PO BID #60 tablet traZODone [Desyrel] 50 mg PO HS #30
== END 2022-02-19 12:55 | disposition home or self-care (01) | DRG 885 ==
LOC: 3A 15:24 → UNDOADMIN 15:24 → 5A 19:26
PROVIDERS: ADMIT Psychiatry & Neurology Psychiatry; ATTEND Psychiatry & Neurology Psychiatry
DX: F20.9 Schizophrenia, unspecified (principal); F41.9 Anxiety disorder, unspecified; Z82.49 Family history of ischemic heart disease and other diseases of the circulatory system; Z88.8 Allergy status to other drugs, medicaments and biological substances; F41.1 Generalized anxiety disorder; Z20.822 Contact with and (suspected) exposure to COVID-19
CPT/HCPCS: 36415; 80053; 80061; 80074; 82962; 83036; 84443; 85025; G0378